=== PATIENT | male | born 1940 | race Caucasian/White ===

== ENCOUNTER → 2017-03-13 | Outpatient (CLI) | payer MEDICARE, OTHER ==
--- NOTE | 2017-03-13 14:40 | RADIOLOGY REPORT (SQ) ---
EXAM DESCRIPTION: BARIUM SWALLOW PHARYNX ONLY COMPLETED DATE/TIME: 03/13/2017 9:55 am REASON FOR STUDY: DYSPHAGIA (R13.10) R13.10 DYSPHAGIA, UNSPECIFIED COMPARISON: 10/11/2009 upper GI 07/30/2013 esophagram TECHNIQUE: Under fluoroscopic guidance, patient ingested effervescent granules followed by thick and thin barium. Fluoroscopic spot images and routine radiographic images acquired and stored on PACS. 12 MM BARIUM TABLET GIVEN: Yes. No significant delay in passage. LIMITATIONS: None. FLUOROSCOPY TIME: FLUORO TIME: 2.4 minutes 9 series of digital images saved to PACS. FINDINGS: NEUROMUSCULAR COORDINATION OF SWALLOW: Normal. No aspiration. ESOPHAGEAL MOTILITY: Normal peristalsis. No esophageal spasm. ESOPHAGEAL MUCOSA: Normal mucosa without masses or ulceration. No Zenker's diverticulum. No upper e sophageal stricture from scarring or cricopharyngeal muscle impression GASTRO-ESOPHAGEAL JUNCTION: Tiny hiatal hernia. Unprovoked gastroesophageal reflux to the cervical e sophagus. NON-GI TRACT STRUCTURES: Old sternotomy OTHER: No other significant finding. IMPRESSION: Unprovoked gastroesophageal reflux to the cervical esophagus COMMENT: Quality ID 145: Final reports for procedures using fluoroscopy that document radiation exp osure indices, or exposure time and number of fluorographic images (if radiation exposure indices are not available) TECHNICAL DOCUMENTATION: JOB ID: [id number] [employer]- All Rights Reserved
== END ==
LOC: RAD 09:00
PROVIDERS: ATTEND Internal Medicine Gastroenterology
DX: R13.10 Dysphagia, unspecified (principal)
CPT/HCPCS: 74210

== ENCOUNTER → 2017-03-27 | Outpatient (CLI) | payer MEDICARE, OTHER ==
--- NOTE | 2017-03-27 09:15 | RADIOLOGY REPORT (SQ) ---
EXAM DESCRIPTION: MING SWALLOW COMPLETED DATE/TIME: 03/27/2017 8:25 am REASON FOR STUDY: DYSPHAGIA (R13.10) R13.10 DYSPHAGIA, UNSPECIFIED COMPARISON: None. TECHNIQUE: Videofluoroscopic swallowing examination was performed in conjunction with speech patholo gy. Videofluoroscopic imaging was obtained and reviewed and these are the findings: RADIATION DOSE: Fluoro time 1.6 minutes 1 images saved to PACS. LIMITATIONS: None FINDINGS: The patient was brought into the fluoro room and placed upright on a modified barium swall ow chair. The patient was then given multiple consistencies mixed with barium to swallow under live fluoroscopic video guidance. According to the Speech Pathologist there was laryngeal penetration see n with thin barium. No aspiration identified. All other consistencies swallowed without incident. P lease refer to the speech pathology report for further details. IMPRESSION: LARYNGEAL PENETRATION, WITHOUT ASPIRATION, SEEN WITH THIN BARIUM.PLEASE SEE SPEECH PATHO LOGIST REPORT FOR OTHER FINDINGS AND RECOMMENDATIONS. COMMENT: None Quality ID 145: Final reports for procedures using fluoroscopy that document radiation exposure maddi josé miguel, or exposure time and number of fluorographic images (if radiation exposure indices are not avail able) TECHNICAL DOCUMENTATION: JOB ID: [id number] [employer]- All Rights Reserved
--- NOTE | 2017-03-27 12:08 | ST Modified Barium Swallow ---
Recommendation - Recommendations Recommendations: Recommend regular diet with thin liquids. Solids per patient preference as he has reduced dentition. Recommend single bites/sips, alternating bites and sips, and secondary, dry swallow to clear residue. Patient may also take pills with applesauce or pudding. Recommend follow-up with outpatient speech therapist to ensure compliance with recommendations. Medical Diagnoses - Medical Diagnoses Medical Diagnosis Description & ICD-10 Code(s): Dysphagia (R13.12) Other Medical Diagnoses/Co-Morbidities: history of thoat cancer and kidney failure per patient ST Modified Barium Swallow - General Date: 03/27/17 Referring Physician: Maricruz Nix Risks/Precautions: Aspiration Date of Onset: 01/29/17 Reason for Referral: patient reports choking on pills and occasionally with thin liquids - History History obtained from: Patient Allergies: no known allergies per patient report - Functional Status Prior Functional Status: INDEPENDENT: feeding Current Functional Limitations: feeding - Subjective Patient/caregiver goal(s): safe swallow Cognitive-Linguistic Function: WNL Speech Intelligibility: WNL Current Nutritional Means: PO Current PO diet: Regular - Per patient preference due to decreased dentition Current symptoms: Coughing Pain: 0/5 - Objective Assessment: Upright, Left Lateral - Food Trials Used Food trials used: Thin liquids, Pureed, Regular The patient: Was Able to Self Feed - Oral-Motor Skills Laryngeal Function: Volitional Cough - Assessment Oral prep: Normal Labial closure: Adequate Leakage: None Mastication: Adequate Lingual Movement: Normal Oral stage: Age appropriate - Pharyngeal Stage Initiation of Pharyngeal Stage Reflex: Delayed Reflex Delay Time (Seconds): 3 - With pudding only Decreased laryngeal elevation: Yes Reduced Velopharyngeal Closure: no Reduced pressure generation: Yes reduced tongue-based retraction: Yes Pre-swallow pooling in valleculae: Mild Pre-Swallow pooling in pyriforms: Mild Reduced epiglottic excursion: Yes Reduced pharyngeal peristalsis/contraction: Yes Multiple Swallows with: Cleared w/ Dry Swallow - Patient required verbal cues to swallow again to clear residue with all consistencies. Liquid wash was necessary to clear solid residue. Post-swallow residulas vallecular: Moderate - Mild residue with thin liquid; moderate residue with pudding and jayy cracker Reduced Cricopharyngeal opening: No - Esophageal Stage Cricopharyngeal Function: Normal Upper Esophageal Transit: Normal - Fall Risk Assessment Medications/Conditions that increase fall risks include: Antidepressants, sedatives, anti-arrhythmic, diuretic, benzodiazipenes, neuroleptics. BP regulation problems, cardiac problems, balance or gait deficits, neurological problems. Is patient considered at risk for falls: no Fall Risk Actions Taken: No action needed - Behavioral Observations During evaluation process patient: was pleasant, was cooperative, able to answer questions, provided medical history - Treatment / Educational Needs: Treatment/Education Needs: Treatment consisted of patient education on the role of the Speech Pathologist. Patient's plan of care and golas were communicated as well as scheduling and attendance policies. Recommendations for initial home program were shared. Patient demonstrated understanding and verbalized agreement. Initial home program recommendations: alternate bites and sips, small bites and sips, double swallow to clear residue - Impression/Summary Laryngeal Penetration: Flash, during swallow - x1 after back to back sips of thin liquid. Did not penetrate or aspirate with thin liquid with small, single sips Consistency: Thin Tracheal Aspiration: no Productive cough: No Effective compensatory strategies: throat clear & reswallow, hard swallow Patient presents with: Pharyngeal stage dysph., Mild-Moderate Risk of Aspiration: Minimal Risk due to: Delayed swallow initiation and pharyngeal residue - Recommendations Solid diet recommendations: Regular - per patient preference due to reduced dentition; small, single bites with multiple swallows and liquid wash if necessary Liquid Diet Modification: Thin - small, single sips with dry swallow to clear residue Strict aspiration precautions: Yes Pt/Family education and followup with MD: Yes Dysphagia therapy with COURTESY DRIVER: yes Recommended techniques: Fully Upright During Meal, Med Crushed in Applesauce - crush when possible; if not, take whole with applesauce or pudding, Dry Swallow After Bite, Small Bites and Sips, Alternate Bites/Sips Information, Precautions and Recommendations: Patient (Written), Patient (Verbal ) - Time Total Time: 20 - Plan of Care Patient to follow-up with referring physician: Yes POC Procedures/Codes: pt/family education, MBSS (47241) Strategies to optimize patient understanding include:: ongoing assessment of educational needs, implementation of educational strategies, and re-education. - - -: Thank you for the opportunity to work with this patient and his/her family. Should you have any questions about this patient's plan or progress, I can be reached at [phone]. Charge G Code? - - -: Yes ST [facility] Impairment Category - Swallowing Current G8996: CI 1-19% Impaired Goal G8997: CI 1-19% Impaired Discharge G8998: CI 1-19% Impaired
== END ==
LOC: RAD 07:23
PROVIDERS: ATTEND Internal Medicine Gastroenterology
DX: R13.10 Dysphagia, unspecified (principal)
CPT/HCPCS: 74230; 92611; G8996; G8997

== ENCOUNTER 2018-06-07 03:34 | Emergency (ER) | payer MEDICARE, OTHER ==
[2018-06-07] MEDS ORDERED: ONDANSETRON HCL INJ/PF 4 MG/2 ML SDV IV ONE (04:18)
[2018-06-07] MEDS ORDERED: MORPHINE SULFATE 10 MG/ML INJ IV ONE ×2 (04:18→05:08)
[2018-06-07 04:35] LABS: ABSOLUTE EOSINOPHILS # (AUTO) 0.1 10^3/uL (0.0-0.6); ABSOLUTE LYMPHOCYTES (AUTO) 0.6 10^3/uL (0.5-4.7); ABSOLUTE MONOCYTES (AUTO) 0.4 10^3/uL (0.1-1.4); BASOPHILS % (AUTO) 0.5 % (0-2); EOSINOPHILS % (AUTO) 0.9 % (0-6); HEMATOCRIT 40.7 % (37.9-51.0); HEMOGLOBIN 13.8 g/dL (13.5-17.0); LYMPHOCYTES % (AUTO) 6.7 % (13-45); MEAN CORPUSCULAR HEMOGLOBIN 29.3 pg (27.0-33.4); MEAN CORPUSCULAR HGB CONC 33.9 g/dL (32.0-36.0); MEAN CORPUSCULAR VOLUME 87 fl (80-97); MONOCYTES % (AUTO) 4.1 % (3-13); PLATELET COUNT 231 10^3/uL (150-450); RED BLOOD COUNT 4.71 10^6/uL (4.35-5.55); RED CELL DISTRIBUTION WIDTH 15.3 % (11.5-14.0); SEGMENTED NEUTROPHILS % (AUTO) 87.8 % (42-78); TOTAL CELLS COUNTED % (AUTO) 100 %; WHITE BLOOD COUNT 9.2 10^3/uL (4.0-10.5)
[2018-06-07 04:55] LABS: ALANINE AMINOTRANSFERASE 22 U/L (21-72); ALBUMIN 5.1 g/dL (3.5-5.0); ALKALINE PHOSPHATASE 65 U/L (38-126); ANION GAP 17 (5-19); ASPARTATE AMINO TRANSFERASE 24 U/L (17-59); BILIRUBIN,DIRECT 0.4 mg/dL (0.0-0.4); BILIRUBIN,TOTAL 0.6 mg/dL (0.2-1.3); BLOOD UREA NITROGEN 46 mg/dL (7-20); CALCIUM 10.2 mg/dL (8.4-10.2); CARBON DIOXIDE 23 mmol/L (22-30); CHLORIDE 100 mmol/L (98-107); GLUCOSE 151 mg/dL (75-110); LIPASE 96.4 U/L (23-300); POTASSIUM 4.4 mmol/L (3.6-5.0); SODIUM 140.2 mmol/L (137-145); TOTAL PROTEIN 8.6 g/dL (6.3-8.2)
--- NOTE | 2018-06-07 05:44 | RADIOLOGY REPORT (SQ) ---
EXAM: CT abdomen pelvis without IV contrast CLINICAL DATA: 77-year-old male with diffuse generalized abdominal pain. The patient has undergone a previous appendectomy and cholecystectomy and partial colectomy. TECHNICAL DATA: Axial CT imaging of the abdomen and pelvis was performed. Sagittal and coronal reconstructed images were then performed. The CT study is performed according to ALARA (as low as reasonably achievable) or ALARA/IMAGE GENTLY, with automatic adjustment of mA and/or kV according to patient size. Performed on: 06/07/2018 at 5:10 AM Comparison: None. FINDINGS: Lung bases: The lung bases are grossly clear. Scattered coronary artery calcifications are noted. There are postsurgical changes of the mediastinum. Liver:The liver is normal in size and configuration. No focal hepatic abnormalities are appreciated on this unenhanced scan. Liver attenuation is within normal limits. Spleen:The spleen is normal is size, configuration and attenuation. No focal splenic abnormalities are appreciated on this unenhanced scan. Gallbladder and bile duct: The gallbladder is surgically absent. There is no biliary ductal dilatation. Pancreas: The pancreas is grossly normal in size and configuration. Adrenal Glands:The adrenal glands are normal in size and configuration. Kidneys: The kidneys are normal in size. There are multiple hypodense renal mass lesions most compatible with renal cysts. The largest arises from the posterior cortex of the midpole of the right kidney and measures approximately 2.8 cm in diameter. Renal vascular calcifications are noted. There is no evidence of hydronephrosis. No edilia nephrolithiasis is seen. Stomach:The stomach is grossly normal. There is no definite hiatal hernia. Bowel:The bowel gas pattern is non specific and non obstructive. Appendix: The appendix is surgically absent. Surgical sutures are noted in the right lower quadrant along the medial cecum. Free air:There is no evidence of free air. Free fluid: There is no evidence of free fluid. Vasculature: There are atherosclerotic calcifications along the abdominal aorta and major branch vessels. An aortobiiliac stent graft is present. Patency cannot be assessed without intravenous contrast. The inferior vena cava is grossly unremarkable. Lymphadenopathy: No pathologic lymphadenopathy is identified. Bladder: The bladder is well distended and smooth in contour. Reproductive: The prostate gland is mildly enlarged and measures approximately 7.0 cm transversely by 4.8 cm in the AP dimension. Bones: No acute osseous abnormalities are identified. There are degenerative changes of the thoracolumbar spine. There are vacuum discs at L4-L5 and L5-S1. Soft tissues: No focal soft tissue abnormalities are identified. There are small bilateral fat-containing inguinal hernias. IMPRESSION: 1. No evidence of acute intra-abdominal or intrapelvic pathology. There is no evidence of bowel obstruction. 2. Aortobifemoral stent graft. There are atherosclerotic calcifications along the abdominal aorta and major branch vessels. 3. Remote cholecystectomy and appendectomy. 4. Bilateral benign-appearing renal cysts. 5. Prostatic hypertrophy.
[2018-06-07] MEDS ORDERED: LOSARTAN POTASSIUM 50 MG TABLET PO ONE (05:48)
[2018-06-07] MEDS ORDERED: CARVEDILOL 3.125 MG TABLET PO ONE (05:48)
[2018-06-07] MEDS ORDERED: FENTANYL CITRATE INJ/PF 100 MCG/2 ML AMPUL IV ONE (05:56)
--- NOTE | 2018-06-07 05:58 | ER Document Report ---
Doctor's Note Notes: 06/07/18 05:56 Patient was initially seen by the PA. She informed the patient came with abdominal pain and vomiting and she went forward with a CT scan abdomen pelvis and labs. Laboratory evaluation is unremarkable. CT scan does not show any acute concerning findings of the patient still has pain. I have added a lactic acid to look for any evidence of ischemia. I think bowel ischemia is less likely however the patient still has some pain even after treatment with morphine. On exam his abdomen is soft. He has some tenderness to palpation mostly periumbilically; however, he says me pushing really does not make the pain a lot worse. He says he just has constant pain regardless for them pushing or not. He does not have any peritoneal signs. He overall clinically looks okay. We will wait for the lactic acid come back. If the lactic acid is elevated or if he is still having significant pain then we will go forward consulting surgery to evaluate the patient due to his ongoing abdominal pain and older age. If his pain is improved and he looks well and his lactic acid is normal then he will be discharged home with close follow-up. Dictation of this chart was performed using voice recognition software; therefore, there may be some unintended grammatical errors.
--- NOTE | 2018-06-07 06:10 | ER Document Report ---
ED General - General Chief Complaint: Abdominal Pain Stated Complaint: ABDOMINAL PAIN, NAUSEA Time Seen by Provider: 06/07/18 04:17 Primary Care Provider: JONATHON LÓPEZ MD [Primary Care Provider] - Follow up as needed Notes: Patient is a 77-year-old male presents to the emergency department for generalized abdominal pain. Patient states for the last 7 hours he noted sudden onset of generalized abdominal pain. "It hurts all over." Patient states he took his at home night medications and then felt a generalized pain in the middle of his stomach. States he did vomit about 4 times denying any blood. Patient is denying any diarrhea or fevers. Patient states his last bowel movement was this evening and he "plugged up the toilet." Patient's denying any chest pain, shortness of breath, dysuria, testicular pain or swelling. Past medical history: Perforated colon with colon resection and repair, hypertension, CABG, GERD, kidney failure Medications: Carvedilol, losartan, famotidine, nitro, tamsulosin, potassium, aspirin, isosorbide Allergies: None TRAVEL OUTSIDE OF THE [place] IN LAST 30 DAYS: No - Related Data Allergies/Adverse Reactions: No Known Allergies Allergy (Verified 06/07/18 03:36) Past Medical History - General Information source: Patient - Social History Smoking Status: Never Smoker Chew tobacco use (# tins/day): No Frequency of alcohol use: None Drug Abuse: None Family History: Reviewed & Not Pertinent Patient has suicidal ideation: No Patient has homicidal ideation: No - Past Medical History Cardiac Medical History: Reports: Hx Hypercholesterolemia, Hx Hypertension Renal/ Medical History: Denies: Hx Peritoneal Dialysis Past Surgical History: Reports: Hx Cardiac Surgery Review of Systems - Review of Systems Constitutional: No symptoms reported EENT: No symptoms reported Cardiovascular: No symptoms reported Respiratory: No symptoms reported Gastrointestinal: See HPI Genitourinary: No symptoms reported Male Genitourinary: No symptoms reported Musculoskeletal: No symptoms reported Skin: No symptoms reported Hematologic/Lymphatic: No symptoms reported Neurological/Psychological: No symptoms reported Physical Exam - Vital signs Vitals: Temp Pulse Resp BP Pulse Ox 98.4 F 82 20 217/86 H 98 06/07/18 03:37 06/07/18 03:37 06/07/18 03:37 06/07/18 03:37 06/07/18 03:37 - Notes Notes: GENERAL: Alert, interacts well. No acute distress. HEAD: Normocephalic, atraumatic. EYES: Pupils equal, round, and reactive to light. Extraocular movements intact. ENT: Oral mucosa moist, tongue midline. NECK: Full range of motion. Supple. Trachea midline. LUNGS: Clear to auscultation bilaterally, no wheezes, rales, or rhonchi. No respiratory distress. HEART: Regular rate and rhythm. No murmur ABDOMEN: Soft, generalized tenderness noted all 4 quadrants. Non-distended. Bowel sounds present in all 4 quadrants. Well-healed linear scar noted down entire abdomen vertically. EXTREMITIES: Moves all 4 extremities spontaneously. No edema, normal radial and dorsalis pedis pulses bilaterally. No cyanosis. BACK: no cervical, thoracic, lumbar midline tenderness. No saddle anesthesia, normal distal neurovascular exam. NEUROLOGICAL: Alert and oriented x3. Normal speech. cranial nerves II through XII grossly intact PSYCH: Normal affect, normal mood. SKIN: Warm, dry, normal turgor. No rashes or lesions noted. Course - Re-evaluation Re-evalutation: Patient's labs showed no signs of leukocytosis, no signs of anemia, patient's lipase is within normal limits, patient's lactate is 1.1, patient's kidney function does appear to be elevated but this appears to be is normal. Patient CT abdomen pelvis without oral or IV contrast shows no acute intra-abdominal pathology no small bowel obstruction. Discussed this case at length multiple times with my attending Dr. Chan Sumner who recommends having the patient return to the emergency room within the next 12 hours for abdominal recheck. Patient states he overall feels a lot better after the fentanyl but still has pain 1 out of 10. Discussed should the pain get any worse, he vomits or had any other concerning symptoms he should immediately return otherwise he should return within 12 hours for an abdominal recheck. Patient voices understanding is stable for discharge. Discussed patient's hypertension with my attending Dr. Chan Sumner who recommends giving the patient his home medications. - Vital Signs Vital signs: Temp Pulse Resp BP Pulse Ox 98.4 F 82 15 175/103 H 92 06/07/18 03:37 06/07/18 03:37 06/07/18 06:16 06/07/18 06:16 03/10/19 06:16 - Laboratory Result Diagrams: 06/07/18 04:28 06/07/18 04:28 Laboratory results interpreted by me: 06/07/18 06/07/18 04:28 04:28 RDW 15.3 H Seg Neutrophils % 87.8 H Lymphocytes % 6.7 L BUN 46 H Creatinine 2.87 H Est GFR ( Amer) 26 L Est GFR (Non-Af Amer) 22 L Glucose 151 H Total Protein 8.6 H Albumin 5.1 H Discharge - Discharge Clinical Impression: Abdominal pain Qualifiers: Abdominal location: generalized Qualified Code(s): R10.84 - Generalized abdominal pain Hypertension Qualifiers: Hypertension type: unspecified Qualified Code(s): I10 - Essential (primary) hypertension Condition: Stable Disposition: HOME, SELF-CARE Instructions: Abdominal Pain ([facility]), High Blood Pressure ([facility]) Additional Instructions: As we discussed you have been seen and treated in the emergency department for your generalized abdominal pain. If at any point in time your abdominal pain gets worse, you have vomiting, or any other concerning symptoms you should immediately return to the emergency room. Otherwise you should follow-up with your primary care provider or return to the emergency room in the next 12 hours so that a medical provider can do another abdominal examination. Referrals: JONATHON LÓPEZ MD [Primary Care Provider] - Follow up as needed
[2018-06-07 06:58] VITALS: BP 191/95
== END 2018-06-07 07:04 | disposition home or self-care (01) ==
LOC: ER 03:34
DX: R10.84 Generalized abdominal pain (principal); I10 Essential (primary) hypertension; K21.9 Gastro-esophageal reflux disease without esophagitis; E78.00 Pure hypercholesterolemia, unspecified; Z95.1 Presence of aortocoronary bypass graft
CPT/HCPCS: 99284; 96374; 96375; 36415; 83605; 83690; 85025; 80053; 74176; A9270 ×2; J3010; J2270; J2405

== ENCOUNTER 2018-06-07 16:49 | Emergency (ER) | payer MEDICARE, OTHER ==
[2018-06-07] MEDS ORDERED: KETOROLAC TROMETHAMINE INJ/PF 30 MG/1 ML SDV IV ONE (18:23)
--- NOTE | 2018-06-07 18:26 | ER Document Report ---
ED Medical Screen (RME) - General Chief Complaint: Abdominal Pain Stated Complaint: ABDOMINAL PAIN Time Seen by Provider: 06/07/18 18:22 Primary Care Provider: JONATHON LÓPEZ MD [Primary Care Provider] - Follow up as needed Mode of Arrival: Ambulatory Information source: Patient TRAVEL OUTSIDE OF THE [place] IN LAST 30 DAYS: No - HPI Patient complains to provider of: abd pain Onset: This afternoon - pt seen here earlier this am with similar c/o -- states pain was improved at time of d/c but recurred earlier this afternoon. - Related Data Allergies/Adverse Reactions: No Known Allergies Allergy (Verified 06/07/18 03:36) Past Medical History - Past Medical History Cardiac Medical History: Reports: Hx Hypercholesterolemia, Hx Hypertension Renal/ Medical History: Denies: Hx Peritoneal Dialysis Past Surgical History: Reports: Hx Cardiac Surgery Physical Exam - Vital signs Vitals: Temp Pulse Resp BP Pulse Ox 99.0 F 86 16 123/72 95 06/07/18 16:57 06/07/18 16:57 06/07/18 16:57 06/07/18 16:57 06/07/18 16:57 Course - Vital Signs Vital signs: Temp Pulse Resp BP Pulse Ox 99.0 F 86 16 123/72 95 06/07/18 16:57 06/07/18 16:57 06/07/18 16:57 06/07/18 16:57 06/07/18 16:57 Doctor's Discharge - Discharge Referrals: JONATHON LÓPEZ MD [Primary Care Provider] - Follow up as needed
[2018-06-07 19:07] LABS: ABSOLUTE BASOPHILS # (AUTO) 0.1 10^3/uL (0.0-0.2); ABSOLUTE EOSINOPHILS # (AUTO) 0.1 10^3/uL (0.0-0.6); ABSOLUTE LYMPHOCYTES (AUTO) 0.7 10^3/uL (0.5-4.7); BASOPHILS % (AUTO) 0.5 % (0-2); EOSINOPHILS % (AUTO) 0.6 % (0-6); HEMATOCRIT 42.9 % (37.9-51.0); HEMOGLOBIN 14.6 g/dL (13.5-17.0); LYMPHOCYTES % (AUTO) 6.2 % (13-45); MEAN CORPUSCULAR HEMOGLOBIN 29.6 pg (27.0-33.4); MEAN CORPUSCULAR HGB CONC 34.1 g/dL (32.0-36.0); MEAN CORPUSCULAR VOLUME 87 fl (80-97); MONOCYTES % (AUTO) 8.3 % (3-13); PLATELET COUNT 265 10^3/uL (150-450); RED BLOOD COUNT 4.94 10^6/uL (4.35-5.55); RED CELL DISTRIBUTION WIDTH 15.4 % (11.5-14.0); SEGMENTED NEUTROPHILS % (AUTO) 84.4 % (42-78); TOTAL CELLS COUNTED % (AUTO) 100 %; WHITE BLOOD COUNT 11.8 10^3/uL (4.0-10.5)
[2018-06-07 19:27] LABS: ALANINE AMINOTRANSFERASE 17 U/L (21-72); ALKALINE PHOSPHATASE 64 U/L (38-126); ANION GAP 14 (5-19); ASPARTATE AMINO TRANSFERASE 26 U/L (17-59); BILIRUBIN,DIRECT 0.3 mg/dL (0.0-0.4); BILIRUBIN,TOTAL 0.8 mg/dL (0.2-1.3); BLOOD UREA NITROGEN 43 mg/dL (7-20); CALCIUM 10.3 mg/dL (8.4-10.2); CARBON DIOXIDE 27 mmol/L (22-30); CHLORIDE 99 mmol/L (98-107); GLUCOSE 127 mg/dL (75-110); LIPASE 161.2 U/L (23-300); POTASSIUM 4.6 mmol/L (3.6-5.0); TOTAL PROTEIN 9.1 g/dL (6.3-8.2)
--- NOTE | 2018-06-07 19:27 | RADIOLOGY REPORT (SQ) ---
EXAM DESCRIPTION: ACUTE ABDOMEN SERIES COMPLETED DATE/TIME: 06/07/2018 7:09 pm REASON FOR STUDY: abd pain COMPARISON: None. NUMBER OF VIEWS: Three views. TECHNIQUE: Frontal chest, supine abdomen and upright/decubitus abdomen radiographic images acquired. LIMITATIONS: None. FINDINGS: CHEST: Lungs clear of infiltrates. FREE AIR: None. No abnormal gas collections. BOWEL GAS PATTERN: Abundant fecal material within nondilated colon. CALCIFICATIONS: No suspicious calcifications. HARDWARE: None in the abdomen. SOFT TISSUES: No gross mass or suggestion of organomegaly. BONES: No acute fracture. No worrisome bone lesions. OTHER: Iliac vascular stents. IMPRESSION: Fecal retention. No obstruction. TECHNICAL DOCUMENTATION: JOB ID: [id number] [employer]- All Rights Reserved Reading location - IP/workstation name: [email or web address]
--- NOTE | 2018-06-07 23:08 | ER Document Report ---
ED General - General Chief Complaint: Abdominal Pain Stated Complaint: ABDOMINAL PAIN Time Seen by Provider: 06/07/18 18:22 Primary Care Provider: JONATHON LÓPEZ MD [Primary Care Provider] - Follow up as needed Mode of Arrival: Ambulatory Notes: Patient is a 77-year old male seen in the emergency department 12 hours ago who presents with mild ongoing abdominal pain but mostly because he was asked to return within 12 hours for recheck of his abdomen. Patient states that his symptoms have overall been better since he left the hospital earlier today. States that he continues to have some intermittent, mild, crampy pain around the mid abdomen mostly around the umbilicus. Nothing seems to improve or worsen his pain. Patient denies associated nausea or vomiting. Has not had fever or constitutional symptoms. TRAVEL OUTSIDE OF THE [place] IN LAST 30 DAYS: No - Related Data Allergies/Adverse Reactions: No Known Allergies Allergy (Verified 06/07/18 03:36) Past Medical History - General Information source: Patient - Social History Smoking Status: Former Smoker Chew tobacco use (# tins/day): No Frequency of alcohol use: None Drug Abuse: None Lives with: Family Family History: Reviewed & Not Pertinent Patient has suicidal ideation: No Patient has homicidal ideation: No - Past Medical History Cardiac Medical History: Reports: Hx Hypercholesterolemia, Hx Hypertension Renal/ Medical History: Denies: Hx Peritoneal Dialysis Past Surgical History: Reports: Hx Cardiac Surgery Review of Systems - Review of Systems Notes: Constitutional: Negative for fever. HENT: Negative for sore throat. Eyes: Negative for visual changes. Cardiovascular: Negative for chest pain. Respiratory: Negative for shortness of breath. Gastrointestinal: Positive for abdominal pain Genitourinary: Negative for dysuria. Musculoskeletal: Negative for back pain. Skin: Negative for rash. Neurological: Negative for headaches, weakness or numbness. 10 point ROS negative except as marked above and in HPI. Physical Exam - Vital signs Vitals: Temp Pulse Resp BP Pulse Ox 99.0 F 86 16 123/72 95 06/07/18 16:57 06/07/18 16:57 06/07/18 16:57 06/07/18 16:57 06/07/18 16:57 Interpretation: Normal Notes: PHYSICAL EXAMINATION: GENERAL: Well-appearing, well-nourished and in no acute distress. HEAD: Atraumatic, normocephalic. EYES: Pupils equal round and reactive to light, extraocular movements intact, sclera anicteric, conjunctiva are normal. ENT: nares patent, oropharynx clear without exudates. Moist mucous membranes. NECK: Normal range of motion, supple without lymphadenopathy LUNGS: Breath sounds clear to auscultation bilaterally and equal. No wheezes rales or rhonchi. HEART: Regular rate and rhythm without murmurs ABDOMEN: Soft, nontender, normoactive bowel sounds. No guarding, no rebound. No masses appreciated. EXTREMITIES: Normal range of motion, no pitting or edema. No cyanosis. NEUROLOGICAL: No focal neurological deficits. Moves all extremities spontaneously and on command. PSYCH: Normal mood, normal affect. SKIN: Warm, Dry, normal turgor, no rashes or lesions noted. Course - Re-evaluation Re-evalutation: 06/07/18 23:08 Patient presents for recheck of his abdomen after being seen approximately 12 hours ago. The patient is ready to leave when I see him. He states that he has no abdominal pain, he came back here per instructions, feels fine and would like to go home. His abdominal exam is completely benign. His labs are effectively unchanged from this morning with the exception of mild worsening of his chronic kidney disease although this is well within range is that he has had in the past per his report. Given the absence of any ongoing pain, no abdominal pain and exam, fact the unchanged labs, I believe the patient is cleared for follow-up with his primary care physician within the next several days. At this time will discharge with return precautions and follow-up recommendations. Verbal discharge instructions given a the bedside and opportunity for questions given. Medication warnings reviewed. Patient is in agreement with this plan and has verbalized understanding of return precautions and the need for primary care follow-up in the next 24-72 hours. 06/07/18 23:08 - Vital Signs Vital signs: Temp Pulse Resp BP Pulse Ox 98.2 F 86 18 116/70 98 06/07/18 23:41 06/07/18 23:41 06/07/18 23:41 06/07/18 23:41 06/07/18 23:41 - Laboratory Result Diagrams: 06/07/18 18:54 06/07/18 18:54 Laboratory results interpreted by me: 03/10/19 03/10/19 18:54 18:54 WBC 11.8 H RDW 15.4 H Seg Neutrophils % 84.4 H Lymphocytes % 6.2 L Absolute Neutrophils 10.0 H BUN 43 H Creatinine 3.01 H Est GFR ( Amer) 25 L Est GFR (Non-Af Amer) 20 L Glucose 127 H Calcium 10.3 H ALT 17 L Total Protein 9.1 H - Diagnostic Test Radiology reviewed: Image reviewed, Reports reviewed Radiology results interpreted by me: 06/07/18 23:09 Acute abdominal series: Fecal retention, no evidence of obstruction or perforation Discharge - Discharge Clinical Impression: Abdominal pain Qualifiers: Abdominal location: periumbilical Qualified Code(s): R10.33 - Periumbilical pa in Condition: Good Disposition: HOME, SELF-CARE Additional Instructions: You have been seen in the Emergency Department (ED) for abdominal pain. Your evaluation did not identify a clear cause of your symptoms but was generally reassuring. Please follow up with your doctor as soon as possible regarding today's emergent visit and the symptoms that are bothering you. Return to the ED if your abdominal pain worsens or fails to improve, you develop bloody vomiting, bloody diarrhea, you are unable to tolerate fluids due to vomiting, fever greater than 101, or other symptoms that concern you. Referrals: JONATHON LÓPEZ MD [Primary Care Provider] - Follow up as needed
[2018-06-07 23:47] VITALS: BP 116/70
== END 2018-06-07 23:41 | disposition home or self-care (01) ==
LOC: ER 16:49
DX: R10.33 Periumbilical pain (principal); Z87.891 Personal history of nicotine dependence; I10 Essential (primary) hypertension
CPT/HCPCS: 99284; 96374; 36415; 83690; 85025; 80053; 74022; J1885

== ENCOUNTER → 2019-09-21 | Outpatient (CLI) | payer MEDICARE, OTHER ==
[~2019-09-21] MED LIST: REGADENOSON INJ 0.4 MG/5 ML DISP.SYRIN IV ONE
--- NOTE | 2019-09-21 11:46 | DRAGON STRESS TEST REPORT ---
Name: Braulio Guillermo. : July. Date: SEP 17. The patient underwent a stress/rest, single isotope SPECT Imaging with pharmacological stress and gated SPECT imaging on for evaluation of. The patient underwent infusion of regadnoson 0.4mg IV using the standard protocol. The heart rate was 71 beats per minute at baseline and increased to 83 beats during the infusion of regadenoson. The resting blood pressure was 172/81 mm/Hg and decreased to 160/72 mm/Hg, which is a normal response. The patient complained of shortness of breath during the procedure. The resting electrocardiogram demonstrated NSR. Stress electrocardiogram is non- diagnostic in the setting of pharmacological stress. Myocardial perfusion imaging was performed at rest following the injection of 12.93 mCi of sestamibi. At peak pharmacolgic effect, the patient was injected with 36.1 mCi of sestamibi. Gating post-stress tomographic imaging was performed 60 minutes after stress. Findings The overall quality of the study is excellent. Raw images demonstrate no significant artifacts. Left ventricular cavity is noted to be mildly enlarged on the rest and stress studies. Resting SPECT images demonstrate a medium sized, of moderate intensity perfusion defect in the inferior wall. The stress images reveal a medium sized, of moderate intensity perfusion defect in the inferior wall. Gated SPECT imaging reveals mild hypokinesis of the inferior wall. The left ventricular ejection fraction was calculated to be 49% Impression -Myocardial perfusion imaging is. 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 -Overall left ventricular systolic function was in the low normal range at 49%. -The inferior wall is mildly hypokinetic. -There are no prior studies for comparison. MTDD
== END ==
LOC: RAD 06:55
PROVIDERS: ATTEND Internal Medicine Cardiovascular Disease
DX: I25.10 Atherosclerotic heart disease of native coronary artery without angina pectoris (principal)
CPT/HCPCS: 93017; 78452; A9500; J2785; Q9969